=== PATIENT | female | born 1965 | race Caucasian/White ===

== ENCOUNTER 2023-12-04 12:56 | Outpatient (CLI) | payer OTHER, SELFPAY ==
--- NOTE | ~2023-12-04 | XR_ITS ---
XR cervical spine 4-5V Ordering provider: Michelle Ellis, [place] History: . Radiculopathy, cervical/thoracic region . Comparison: None. FINDINGS: VERTEBRAL BODIES: Normal height and alignment. No visible fracture or subluxation. The dens is intact . DISK SPACES: Narrowing of the disc C4-C5, C5-C6 and C6-C7. Multilevel uncovertebral joint osteoarthri tic changes. Bilateral narrowing of the foramina at multiple levels. PARASPINOUS SOFT TISSUES: No prevertebral soft tissue swelling. IMPRESSION: No acute osseous abnormality cervical spine. Multilevel degenerative disc disease. Reviewed, dictated and finalized at location A.
== END 2023-12-04 12:57 ==
PROVIDERS: PCP Chiropractor; Visit Provider Chiropractor
DX: M54.13 Radiculopathy, cervicothoracic region (principal); M99.01 Segmental and somatic dysfunction of cervical region; M99.02 Segmental and somatic dysfunction of thoracic region; M50.30 Other cervical disc degeneration, unspecified cervical region
CPT/HCPCS: 72050